=== PATIENT | female | born 1965 | race Caucasian/White ===

== ENCOUNTER → 2017-11-02 | Outpatient (REF) | payer BC ==
[2017-11-03 14:17] LABS: HPV HYBRID CAPTURE II Negative (Negative)
== END ==
LOC: M SFHCWAGY 09:12
DX: Z12.4 Encounter for screening for malignant neoplasm of cervix (principal)
CPT/HCPCS: G0123

== ENCOUNTER → 2017-11-09 | Outpatient (CLI) | payer BC | LOC: M WHC 13:55 | DX: N92.1 Excessive and frequent menstruation with irregular cycle (principal) ==

== ENCOUNTER → 2017-12-20 | Outpatient (CLI) | payer BC | LOC: M WHC 14:46 | DX: N83.201 Unspecified ovarian cyst, right side (principal); D25.9 Leiomyoma of uterus, unspecified | CPT/HCPCS: 76830 ==

== ENCOUNTER → 2020-06-12 | Outpatient (CLI) | payer OTHER ==
--- NOTE | 2020-06-12 11:29 | REP ---
INDICATION: PAIN IN THORACIC SPINE. COMPARISON: MRI 05/22/2020. TECHNIQUE/RADIOTRACER AND DOSE: Following the intravenous administration of 21.3 mCi technetium 99 M MDP, multiple images of the body are obtained in various projections. FINDINGS: No abnormal uptake is seen in any portion of the spine. There is increased radiotracer uptake along the sternoclavicular joints bilaterally, left greater than right, particularly in the superior aspect of the left manubrium. This may be related to arthritic changes at the sternoclavicular joint. Mild bilateral uptake in the tarsal regions likely represents arthritic change. No other abnormal uptake is seen in the axial or appendicular skeleton. Renal and bladder activity are seen. IMPRESSION: No abnormal uptake in any portion of the spine. Increased uptake along the sternoclavicular joints, especially in the superior aspect of the left manubrium, may be related to arthritic uptake. There is bilateral tarsal uptake likely indicating arthritic uptake. <Electronically signed by Fransisco Trevino > 06/12/20 [id number]
== END ==
LOC: M RAD 07:54
PROVIDERS: ATTEND Orthopaedic Surgery
DX: M54.6 Pain in thoracic spine (principal)
CPT/HCPCS: 78306; A9503

== ENCOUNTER → 2024-02-08 | Outpatient (REF) | payer OTHER ==
[2024-02-08 18:09] LABS: APPEARANCE, URINE HAZY (CLEAR); BACTERIA, URINE AUTO 1+ (NEGATIVE); BILIRUBIN, URINE AUTO NEGATIVE (NEGATIVE); BLOOD, URINE BLOOD 1+ (NEGATIVE); COLOR, URINE YELLOW (YELLOW); GLUCOSE, URINE (UA) AUTO NEGATIVE (NEGATIVE); KETONE, URINE AUTO NEGATIVE (NEGATIVE); LEUKOCYTE ESTERASE, URINE AUTO 2+ (NEGATIVE); NITRITE, URINE AUTO NEGATIVE (NEGATIVE); PROTEIN, URINE AUTO NEGATIVE (NEGATIVE); RBC, URINE AUTO 0 /HPF (0-3); SPECIFIC GRAVITY URINE AUTO 1.008 (1.002-1.035); SQUAMOUS EPITHELIAL CELL UR AU 0 /HPF (0-6); UROBILINOGEN, URINE AUTO 0.2 mg/dL (0.0-2.0); WBC, URINE AUTO 31 /HPF (0-3)
== END ==
LOC: M LAB REF 16:17
PROVIDERS: ATTEND Physician Assistant Medical
DX: N39.0 Urinary tract infection, site not specified (principal)